=== PATIENT | male | born 1955 | race Caucasian/White ===

== ENCOUNTER 2017-10-14 12:45 | Emergency (ER) | payer SELFPAY ==
[~2017-10-14 12:45] MED LIST: CLIN1CAP6 PO; CLOT1%T TOP; LEVA750T PO; RANI150 PO
[2017-10-14 13:30] VITALS: BP 124/60; PULSE 84; RESP 16; TEMP 98.4; O2SAT 99
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
[2017-10-14] MEDS ORDERED: NORC5TAB PO (15:28)
== END 2017-10-14 16:14 | disposition home or self-care (01) ==
LOC: NEPK 12:45
DX: S62.646A Nondisplaced fracture of proximal phalanx of right little finger, initial encounter for closed fracture (principal); F17.200 Nicotine dependence, unspecified, uncomplicated; Z87.39 Personal history of other diseases of the musculoskeletal system and connective tissue; V19.3XXA Pedal cyclist (driver) (passenger) injured in unspecified nontraffic accident, initial encounter; Y93.55 Activity, bike riding
CPT/HCPCS: 29125; 73130